=== PATIENT | female | born 2000 | race Caucasian/White ===

== ENCOUNTER 2021-12-25 10:14 | Outpatient (CLI) | payer OTHER, SELFPAY ==
[2021-12-25 10:44] LABS: Basophils Percent Auto 0.5 % (0.2-1.2); Eosinophils Absolute Auto 0.1 K/mm3 (0-0.3); Eosinophils Percent Auto 0.6 % (0-4.4); Hematocrit 37.3 % (37.0-47.0); Hemoglobin 11.5 g/dL (12.0-15.0); Immature Granulocyte Absolute 0.01 K/mm3 (0.00-0.031); Immature Granulocyte Percent A 0.1 % (0-0.5); Lymphocytes Absolute Auto 1.83 K/mm3 (0.9-3.2); Lymphocytes Percent Auto 22.6 % (18.3-44.2); Mean Corpuscular HGB Conc 30.8 g/dl (32-36); Mean Corpuscular Hemoglobin 23.9 pg (26-34); Mean Corpuscular Volume 77.4 fl (80-100); Monocytes Absolute Auto 0.4 K/mm3 (0.1-0.6); Monocytes Percent Auto 5.2 % (2.6-8.5); Neutrophils Absolute Auto 5.7 K/mm3 (1.3-6.7); Platelet Count Result 408 k/mm3 (150-375); Red Blood Count 4.82 M/mm3 (4.2-5.4); Red Cell Distribution Width 15.5 % (11.5-14.5); White Blood Count 8.1 K/mm3 (4.5-10.0)
[2021-12-25 10:54] LABS: Cholesterol 164 mg/dL (0-200); HDL Direct 32 mg/dL; Hemoglobin A1C 5.2 % (<5.7); Triglycerides 83 mg/dL (<150)
[2021-12-25 11:05] LABS: LDL Cholesterol Direct 90 mg/dL
[2021-12-25 11:11] LABS: Beta HCG Quantitative < 2.39 mIU/ML
[2021-12-27 11:15] LABS: DHEA-Sulfate 165 mcg/dL (51-321)
[2021-12-28 13:15] LABS: Progesterone 0.6 ng/mL (***)
[2021-12-29 23:08] LABS: Estradiol, Ultrasensitive 83 pg/mL
[2021-12-30 16:31] LABS: Testosterone Free 7.4 pg/mL (0.1-6.4); Testosterone Total 56 ng/dL (2-45)
== END 2021-12-25 10:15 | disposition home or self-care (01) ==
PROVIDERS: Visit Provider Obstetrics & Gynecology
DX: N93.9 Abnormal uterine and vaginal bleeding, unspecified (principal)
CPT/HCPCS: 36415; 80061; 82627; 82670; 83001; 83036; 83498; 84144; 84146; 84402; 84403; 84702; 85025

== ENCOUNTER 2022-06-02 13:28 | Emergency (ER) | payer BC, SELFPAY ==
[2022-06-02 14:12] VITALS: BP 132/79; PULSE 109; RESP 16; TEMP 37.7; O2SAT 99
--- NOTE | 2022-06-02 14:38 | ED.URI ---
HPI - URI/Sore Throat General Chief Complaint: Upper Respiratory Infection Stated Complaint: uri Time Seen by Provider: 06/02/22 14:38 Source: patient, RN notes reviewed and old records reviewed Mode of arrival: ambulatory Limitations: no limitations History of Present Illness HPI Narrative: 22-year-old female presents to the [facility] with complaints of 2 days, started of headache, sore throat, body aches and cough. Had taken Advil 1 time today for her headache. No other treatment prior to arrival. Related Data Home Medications Medication Instructions Recorded Confirmed aripiprazole 5 mg tablet (Abilify) 5 mg PO DAILY 11/08/21 06/02/22 Allergies Allergy/AdvReac Type Severity Reaction Status Date / Time Penicillins Allergy Severe Hives Verified 06/02/22 13:59 Review of Systems Review of Systems: All systems reviewed & are unremarkable except as noted in HPI and below Constitutional: Constitutional: Reports as per HPI, Reports body ache(s) and Reports headache(s) Eyes: Eyes: Reports no additional eye complaints ENT: Reports as per HPI and Reports sore throat Cardiovascular: Cardiovascular: Reports no additional cardiovascular complaints, Denies chest pain and Denies dyspnea Respiratory: Respiratory: Reports no additional respiratory complaints, Denies chest congestion, Denies cough and Denies dyspnea Gastrointestinal: Gastrointestinal: Reports no additional gastrointestinal complaints, Denies abdominal pain, Denies nausea and Denies vomiting Musculoskeletal: Musculoskeletal: Reports no additional musculoskeletal complaints Integumentary/Breasts: Skin/Breast: Reports system reviewed and no additional complaints, except as docu Neurologic: Reports system reviewed and no additional complaints, except as documented Psychiatric: Psychiatric: Reports no additional psychiatric complaints Allergic/Immunologic: Allergic/Immunologic: Reports no additional allergic/immunologic complaints [facility] Past Medical History Medical History Bipolar 1 disorder Family History Family History Other Diabetes mellitus Social History Social History Smoking status: Never smoker Alcohol intake: never Substance use: never Substance use type: does not use 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 There is no relevant family history pertinent to the patient complaint. Exam Const: General: cooperative, healthy appearing, comfortable, no acute distress, well developed, alert and well nourished Nutritional Appearance: well nourished and obese Orientation/consciousness: patient oriented x3 Limitations: no limitations HENMT: Head: normal to inspection Ears: hearing grossly normal bilaterally and external ears normal Face/Nose/Sinus: Normal external nose present, Normal nares present, Normal nasal mucous membranes and turbinates present and normal facial exam Face and sinus: normal facial exam Mouth: Yes Normal oral and palatal mucosa present, Yes lip normal and Yes moist mucous membranes Throat: posterior oropharynx normal and uvula midline Eyes: General: appearance normal, both eyes and all related structures Alignment and Position: alignment normal Periorbital: periorbital findings normal Conjunctivae: conjunctivae normal Pupils: Equal, round and reactive pupils present EOM: EOMs intact bilaterally Neck: Neck: normal visual inspection, full ROM, no lymphadenopathy and no meningeal signs Chest: Chest palpation & inspection: normal inspection of the chest Resp: Effort & Inspection: david
== END 2022-06-02 15:27 | disposition home or self-care (01) ==
PROVIDERS: Emergency Provider Nurse Practitioner
DX: J06.9 Acute upper respiratory infection, unspecified (principal); Z20.822 Contact with and (suspected) exposure to COVID-19; F31.9 Bipolar disorder, unspecified
CPT/HCPCS: 87081; 87426; 87804; 99213; C9803; G0463

== ENCOUNTER 2023-01-24 11:26 | Outpatient (CLI) | payer BC, SELFPAY ==
[2023-01-24 12:48] LABS: Hepatitis B Surface Antigen Negative (Negative)
[2023-01-24 12:53] LABS: HIV 1/2 Ab P24 Ag Result Negative (Negative)
[2023-01-24 12:54] LABS: HAV RESULT Negative (Negative); Hepatitis B Core IgM Result Negative (Negative)
[2023-01-24 13:06] LABS: Hepatitis C Virus Antibody Negative (Negative)
[2023-01-25 11:03] LABS: Rapid Plasma Reagin Non-Reactive (NonReactive)
== END 2023-01-24 11:27 | disposition home or self-care (01) ==
LOC: ANHLAB 11:27
PROVIDERS: PCP Nurse Practitioner Family; Visit Provider Student in an Organized Health Care Education/Training Program
DX: Z20.2 Contact with and (suspected) exposure to infections with a predominantly sexual mode of transmission (principal)
CPT/HCPCS: 36415; 80074; 86592; 86695; 86696; 86703; G0432

== ENCOUNTER 2023-05-02 16:28 | Outpatient (CLI) | payer BC, SELFPAY ==
[2023-05-02 17:03] LABS: Alanine Aminotransferase 27 U/L (6-35); Alkaline Phosphatase 91 U/L (38-126); Anion Gap 11 mmol/L (8-16); Aspartate Amino Transferase 21 U/L (14-36); Bilirubin,Total 0.4 mg/dL (0.2-1.3); Blood Urea Nitrogen 10 mg/dL (7-17); Calcium 9.1 mg/dL (8.4-10.2); Carbon Dioxide 24 mmol/L (22-30); Chloride 101 mmol/L (98-107); Estimated Glomerular Filt Rate > 60; Glucose 96 mg/dL (65-110); Sodium 136 mmol/L (137-145)
[2023-05-02 17:33] LABS: Total Triiodothyronine (T3) 1.69 NG/ML (0.97-1.69)
[2023-05-02 17:51] LABS: Free T4 Free Thyroxine 0.82 ng/mL (0.78-2.19)
== END 2023-05-02 16:29 | disposition home or self-care (01) ==
LOC: ANHLAB 16:30
PROVIDERS: PCP Family Medicine; Visit Provider Family Medicine
DX: I10 Essential (primary) hypertension (principal); E03.9 Hypothyroidism, unspecified
CPT/HCPCS: 36415; 80053; 84439; 84443; 84480

== ENCOUNTER 2024-11-15 14:00 | Emergency (ER) | payer BC, SELFPAY ==
[2024-11-15 14:24] VITALS: BP 118/59; PULSE 117; RESP 16; TEMP 36.8; O2SAT 100
[2024-11-15 14:38] LABS: EDSTREPNEGPOS1 Positive (Negative)
== END 2024-11-15 14:46 | disposition home or self-care (01) ==
PROVIDERS: Emergency Provider Nurse Practitioner Family
DX: J02.0 Streptococcal pharyngitis (principal); K21.9 Gastro-esophageal reflux disease without esophagitis; F31.9 Bipolar disorder, unspecified
CPT/HCPCS: 87880; 99213; G0463

== ENCOUNTER 2024-12-12 12:40 | Emergency (ER) | payer BC, MEDICAID, SELFPAY ==
[2024-12-12 12:54] VITALS: BP 127/75; PULSE 107; RESP 16; TEMP 36.7; O2SAT 100
--- NOTE | 2024-12-12 16:25 | ED_ITS ---
HPI - Back Pain/Injury General Chief Complaint: Back Pain/Injury Stated Complaint: BACK PAIN Time Seen by Provider: 12/12/24 12:55 Source: patient and RN notes reviewed Mode of arrival: ambulatory Limitations: no limitations History of Present Illness HPI Narrative: 24-year-old female presents [facility] complaining of right lower back pain. Patient denies any apparent injury. Patient said a few days ago she was bowling please see my injury did then. Patient said the pain started approximately 2 hours after pulling. Patient reports having muscle spasms her right lower back. Patient reports the pain is nonradiating, patient denies any shooting pains. Patient denies any urinary symptoms. Patient denies any falls or any injuries. Patient denies any saddle anesthesia, loss of bowel or bladder function, or weakness to her legs. Patient has taken Tylenol and ibuprofen for pain with no relief. Related Data Home Medications ?Medication ?Instructions ?Recorded ?Confirmed ?Last Taken ?Type omeprazole 20 mg capsule,delayed 20 mg PO DAILY 05/02/23 12/12/24 Unknown History release levonorgestrel (Mirena) 1 device intrauterine ONCE 08/01/23 12/12/24 Unknown History albuterol sulfate 90 mcg/actuation 2 puff inhalation PRN PRN 05/16/24 05/16/24 Unknown History aerosol inhaler Shortness Of Breath Or Wheezing aripiprazole 15 mg tablet 15 mg PO DAILY 05/16/24 05/16/24 Unknown History benzonatate 200 mg capsule 200 mg PO PRN PRN Cough 05/16/24 05/16/24 Unknown History levonorgestrel (Mirena) 1 device intrauterine ONCE 05/16/24 05/16/24 Unknown History semaglutide (weight loss) 0.25 0.25 mg subcut WEEKLY 05/16/24 05/16/24 Unknown History mg/0.5 mL subcutaneous pen injector ([employer]) cariprazine 1.5 mg capsule 1.5 mg 11/15/24 Unknown History (Vraylar) Allergies Allergy/AdvReac Type Severity Reaction Status Date / Time Penicillins Allergy Severe Hives Verified 12/12/24 12:52 amoxicillin Allergy Mild hives Verified 12/12/24 12:52 Review of Systems Review of Systems: CONSTITUTIONAL: Denies fever, chills, or sweats. EYES: Denies visual changes, redness, or discharge. ENT: Denies rhinorrhea, congestion, sore throat, or otalgia. CARDIOVASCULAR: Denies chest pain, palpitations, or edema. RESPIRATORY: Denies cough or dyspnea. GASTROINTESTINAL: Denies abdominal pain, nausea, vomiting, or diarrhea. GENITOURINARY: Denies dysuria or hematuria. SKIN: Denies rash or itching. MUSCULOSKELETAL: Positive for back pain and muscle spasms. Negative for joint pain, or myalgia. NEUROLOGIC: Denies headache, numbness, saddle anesthesia, loss of bowel or bladder, leg weakness, or weakness. PSYCHIATRIC: Denies anxiety or depression. All other systems reviewed are negative, except as documented in HPI. [facility] Past Medical History Medical History (Updated 12/12/24 @ 13:09 by Alber Butler APRN) Exposure to sexually transmitted disease (STD) Bipolar 1 disorder Surgical History Surgical History (System 11/16/24 @ 07:03 by Maritza Swanson) Encounter for IUD insertion Family History Family History Other Diabetes mellitus Social History Social History (System 11/16/24 @ 07:03 by Maritza Swanson) Social History: Single Smoking status: Never smoker Second hand tobacco smoke exposure: No Alcohol intake: former Substance use: former Substance use type: marijuana Do You Feel Safe in your Home?: Yes Lack of Transportation: No Lack of Food: Never True Current Housing: Decline to Answer Concerned About Future Housing: Decline to Answer Difficulty Paying Gas/Electric Bills: Decline to Answer Difficulty Paying for Meds: Decline to Answer Currently Unemployed: Decline to Answer Education: Decline to Answer Difficulty w/ Childcare or Family Care: Decline to Answer Living arrangements: alone Occupation/Education: occupation 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 There is no relevant family history pertinent to the patient complaint. Exam Narrative: GENERAL: This is a well-nourished, well-developed adult, in no apparent distress. They are non ill-appearing, nontoxic appearing. Patient is morbidly obese. Physical exam limited due to large body habitus. HEAD: normocephalic, atraumatic. EYES: Sclera clear/white. Conjunctiva normal. Vision is grossly intact. Extraocular movements intact EARS: External ears normal, Hearing grossly intact. NOSE: External nose normal THROAT: Mucous membranes moist, NECK: Neck supple, CARDIOVASCULAR: Regular rate and rhythm RESPIRATORY: Respiratory rate normal, respiratory effort nonlabored, no respiratory distress SKIN: warm, Dry, intact with no suspicious lesions or rash, good texture and turgor. NEURO: awake, alert, and oriented to person, place and time. There were no obvious focal neurologic abnormalities. EXTREMITIES: No joint tenderness, effusion, or edema noted. BACK: Tenderness to palpation to right lower back. No cervical/thoracic, lumbar point tenderness, crepitus, or step-offs. No CVA tenderness. Course Course Emergency Course: Portions of this record may have been created with voice recognition software Level of Care: Express Care Visit Vital Signs Vital signs: Vital Signs Temperature 98.1 F 12/12/24 12:54 Pulse Rate 107 H 12/12/24 12:54 Respiratory Rate 16 12/12/24 12:54 Blood Pressure 127/75 12/12/24 12:54 Pulse Oximetry 100 12/12/24 12:54 Temperature 98.1 F 12/12/24 12:54 Pulse Rate 107 H 12/12/24 12:54 Respiratory Rate 16 12/12/24 12:54 Blood Pressure 127/75 12/12/24 12:54 Pulse Oximetry 100 12/12/24 12:54 Reviewed MDM - Back Pain/Injury MDM Narrative Medical decision making narrative: Likely patient has a muscle strain. No evidence of sciatic. Will treat with muscle relaxers and lidocaine patches along with [id number] therapy. Discussed physical exam findings. Advised supportive measures and signs/symptoms to go to the ER. Pt is appropriate for outpt treatment and f/u. Differential Diagnosis Differential diagnosis: Likely lumbar radiculopathy, sciatica and strain of lumbar region Critical Care Time Critical Care Time Critical Care Time: No Discharge Plan Discharge Clinical Impression: Back pain Qualifiers: Back pain location: low back pain Chronicity: acute Back pain laterality: right Sciatica presence: without sciatica Qualified Code(s): M54.50 - Low back pain, unspecified Patient Disposition: Home Condition: Stable Instructions: Acute Low Back Pain (ED) Additional Instructions: Take the muscle relaxer as directed. Do not drive or operate heavy machine, or work while taking the medication as it can make you drowsy. Use the lidocaine patches as directed. You may take Tylenol or ibuprofen as needed Please follow-up with your primary care provider if pain persist Rest. Avoid pushing, pulling, lifting --running or excessive walking-- or a nything that worsens the symptoms You may try stretching your lower back or doing spinal decompression to help with symptoms. Go to the emergency department if you develop any numbness or tingling to your groin, weakness in your legs, or any loss of bowel or bladder function. Patient Language: Ghanaian Prescriptions: New methocarbamol 750 mg tablet 750 mg PO TID Qty: 12 0RF lidocaine 5 % adhesive patch,medicated 1 patch topical DAILY Qty: 15 0RF Rx Instructions: leave on most painful area for up to 12 hrs No Action Vraylar 1.5 mg capsule 1.5 mg benzonatate 200 mg capsule 200 mg PO PRN PRN (Reason: Cough) albuterol sulfate 90 mcg/actuation HFA aerosol inhaler 2 puff INHALATION PRN PRN (Reason: Shortness Of Breath Or Wheezing) aripiprazole 15 mg tablet 15 mg PO DAILY Wegovy 0.25 mg/0.5 mL pen injector 0.25 mg SUBCUT WEEKLY Mirena 21 mcg/24hr (up to 8 yrs) 52 mg Intrauterine Device 1 device INTRAUTERINE ONCE Rx Instructions: as a single dose moxifloxacin 400 mg tablet 400 mg PO DAILY 5 Days Qty: 5 0RF omeprazole 20 mg capsule,delayed release(DR/EC) 20 mg PO DAILY Mirena 21 mcg/24 hours (8 yrs) 52 mg intrauterine device 1 device intrauterine ONCE Rx Instructions: as a single dose Follow-up/Referrals: PHYSICIAN,MANAGER PSYCHOLOGY [Primary Care Provider] - Time of Disposition: 13:09
== END 2024-12-12 13:14 | disposition home or self-care (01) ==
DX: M54.50 Low back pain, unspecified (principal)
CPT/HCPCS: 99213; G0463